=== PATIENT | male | born 1965 | race Caucasian/White ===

== ENCOUNTER 2018-12-08 12:28 | Emergency (ER) | payer MEDICARE, MEDICAID ==
[~2018-12-08] VITALS: Ht 180.3 cm; Wt 77.1 kg
[2018-12-08 12:28] VITALS: BP 102/71
--- NOTE | 2018-12-08 12:28 | NUR ---
ED Nurse Note: Pt BIBA; per EMS pt reports left leg pain. Pt was picked up on the street. Pt is A&O x4, V/S stable with no acute s&s of distress noted at this time.
[2018-12-08] MEDS ORDERED: Acetaminophen 500mg (ES) tab ORAL ONE (13:30)
[2018-12-08] MEDS ORDERED: TYLENOL EXTRA500 MG ORAL (13:38)
--- NOTE | 2018-12-08 13:38 | Emergency Room Report ---
History of Present Illness General Chief Complaint: Lower Extremity Injury Present Illness HPI 53-year-old male currently homeless and with unknown significant past medical history here complaining of pain in the left leg. Recent fall or injury. He looks under the influence of alcohol however is alert and responds to all questions. She is capable of moving his left leg and knee around however complains of minimal pain when walking. The pain 5 out of 10 without radiation , denying tingling and numbness. Taking any medication for pain. Denies head trauma, dizziness, chest pain, palpitation, nausea vomiting, urinary and bowel incontinence and all other associated symptoms Allergies: Coded Allergies: IBUPROFEN (Verified Allergy, Unknown, 12/16/10) Patient History Past Medical History: see triage record Past Surgical History: none Pertinent Family History: unable to obtain Reviewed Nursing Documentation: PMH: Agreed; PSxH: Agreed Review of Systems All Other Systems: negative except mentioned in HPI Physical Exam Vital Signs Date Time Temp Pulse Resp B/P (MAP) Pulse Ox O2 Delivery O2 Flow Rate FiO2 12/08/18 12:22 97.3 92 16 98 Room Air Sp02 EP Interpretation: reviewed, normal General Appearance: normal inspection, well appearing Head: normocephalic, atraumatic Eyes: bilateral eye normal inspection, bilateral eye PERRL ENT: normal ENT inspection, normal pharynx Neck: normal inspection, full range of motion, supple Respiratory: normal inspection, chest non-tender, lungs clear, normal breath sounds Cardiovascular #1: normal inspection, normal peripheral pulses, regular rate, rhythm Gastrointestinal: normal inspection, non tender Genitourinary: no CVA tenderness Musculoskeletal: normal inspection, back normal, digits/nails normal, gait/ station normal, pelvis stable Neurologic: normal inspection, alert, oriented x3 Psychiatric: normal inspection, judgement/insight normal Skin: normal inspection, normal color Lymphatic: normal inspection, no adenopathy Medical Decision Making PA Attestation All my diagnosis and treatment plans were reviewed ad discussed with my supervising physician Dr. Boateng Diagnostic Impression: Primary Impression: Arthritis of knee ER Course 53-year-old male currently homeless and with unknown significant past medical history here complaining of pain in the left leg. Recent fall or injury. He looks under the influence of alcohol however is alert and responds to all questions. She is capable of moving his left leg and knee around however complains of minimal pain when walking. The pain 5 out of 10 without radiation , denying tingling and numbness. Taking any medication for pain. Denies head trauma, dizziness, chest pain, palpitation, nausea vomiting, urinary and bowel incontinence and all other associated symptoms Ddx considered but are not limited to: Knee fracture, DVT, arthritis left knee, strain of left knee Vital signs: are WNL, pt. is afebrile H&PE are most consistent with: Arthritis of left knee ORDERS: tylenol ED INTERVENTIONS: tylenol DISCHARGE: At this time pt. is stable for d/c to home. Will provide printed patient care instructions, and any necessary prescriptions. Care plan and follow up instructions have been discussed with the patient prior to discharge. Patient appears disheveled however agrees with the course of treatment and to follow with a primary care provider no need for x-ray or any other imaging as there was no recent trauma or injury done to the knee and patient is capable of having full range of motion without pain radiation Last Vital Signs Date Time Temp Pulse Resp B/P (MAP) Pulse Ox O2 Delivery O2 Flow Rate FiO2 12/08/18 12:22 97.3 92 16 98 Room Air Disposition: HOME, SELF-CARE Condition: Stable Scripts Acetaminophen* (TYLENOL EXTRA STRENGTH*) 500 Mg Tablet 500 MG ORAL Q8H PRN for Prn Headache/Temp > 101, #30 TAB 0 Refills Prov: Randal Adams 12/08/18 Patient Instructions: Arthritis, [id number] Randal Adams December 08, 2018 13:38
[2018-12-08 13:50] VITALS: BP 105/77
--- NOTE | 2018-12-08 13:50 | NUR ---
ER DISCHARGE NOTE: Patient is cleared to be discharged per ERMD, pt is aox4, on room air, with stable vital signs. pt was given dc and prescription instructions, pt was able to verbalize understanding, pt id band removed. pt is able to ambulate with steady gait. pt took all belongings.
== END 2018-12-08 13:50 | disposition home or self-care (01) ==
LOC: EDBD 12:28 → EMR 13:00
DX: M17.12 Unilateral primary osteoarthritis, left knee (principal); Z88.6 Allergy status to analgesic agent; Z59.0 Homelessness
CPT/HCPCS: 99282